=== PATIENT | male | born 1985 | race Caucasian/White ===

== ENCOUNTER → 2019-11-26 | Outpatient (CLI) | payer OTHER ==
[2019-11-27 09:11] LABS: HBSAG SCREEN Negative (Negative); HEP A AB, IGM Negative (Negative); HEP B CORE AB, IGM Negative (Negative); HEP C VIRUS AB 0.2 (0.0-0.9); HIV SCREEN 4TH GENERATION WRFX Non Reactive (Non Reactive)
[2019-11-28 02:07] LABS: CHLAMYDIA TRACHOMATIS, NAA Negative (Negative); NEISSERIA GONORRHOEAE, NAA Negative (Negative)
== END ==
LOC: LAB 17:20 → LAB SHORT 17:20
PROVIDERS: Physician Assistant
DX: N34.1 Nonspecific urethritis (principal)
CPT/HCPCS: 80074; 86592; 87389; 87491; 87591

== ENCOUNTER → 2019-12-03 | Outpatient (CLI) | payer BC | END | disposition home or self-care (01) | LOC: LAB SHORT 17:51 → LAB 17:51 | PROVIDERS: Physician Assistant | DX: N34.2 Other urethritis (principal) | CPT/HCPCS: 86694; 86695; 86696 ==

== ENCOUNTER → 2022-10-07 | Outpatient (CLI) | payer BC | LOC: LAB SHORT 12:30 → PLD 12:30 → LAB 12:30 | DX: L53.9 Erythematous condition, unspecified (principal); R23.4 Changes in skin texture | CPT/HCPCS: 88312 ==